=== PATIENT | female | born 1990 | race Caucasian/White ===

== ENCOUNTER 2017-05-19 20:41 | Inpatient (IN) | payer OTHER ==
[~2017-05-19] VITALS: Ht 167.6 cm; Wt 68.0 kg
[~2017-05-19 20:41] MED LIST: ACYC400 PO; ALBU4ER PO; ALBU90I INH; AMOCLA875 PO; AMOX250 PO; AMOX500 PO; AMOX50SU PO; ARIP10 PO; AZIT250 PO; BC PILLS; BENZ10TG MC; BIRTH CONTROL; BISMUTH SUBSALICYLATE; CIME400 PO; CODGUAEL PO; CYCL10 PO; DEXGUASY PO; DIPATR PO; DIPH50 PO; FAMO20 PO; HYDACE5 PO; HYDPAM25; IBUP600 PO; LOPE2C PO; MEDR10 PO; MIRT15; MONT10T PO; MULTCH PO; MULVITMINE; MULVITMINE PO; NITR100CA PO; ONDA4 PO; ONDA8ODT MM; OXYACE5T PO; OXYC10ER PO; OXYC5 PO; PENVK500 PO; PHENA100 PO; PHENA200 PO; PRED20 PO; PROC10 PO; PROC25S PR; PROC5 PO; PROCODE120 PO; PRODEXEL PO; PROM25 PO; PROM25S PR; PSETRI PO; Percocet 5-3251 EACH PO; QUET100 PO; QUET300 PO; RANI150 PO; RXDIPATR PO; RXONDA4ODT MM; RXPROM25 PO; SERT25 PO; SUCR1 PO; SULTRIDS PO; TRAM50 PO; Ultram50 MG PO; VENL25; Zofran Odt4 MG SL; Zofran4 MG PO; [UNRECOGNIZED DRUG - OTHER]
[2017-05-19 21:09] LABS: BASOPHILS ABSOLUTE AUTO 0.04 K/mm3 (0.00-0.23); BASOPHILS PERCENT AUTO 0 % (0-2); EOSINOPHILS ABSOLUTE AUTO 0.28 K/mm3 (0.00-0.68); EOSINOPHILS PERCENT AUTO 2 % (0-6); Hematocrit 36.9 % (33.0-51.0); Hemoglobin 12.5 g/dL (11.5-16.0); IMMATURE GRAN ABSOLUTE AUTO 0.04 K/mm3 (0.00-0.10); IMMATURE GRAN PERCENT AUTO 0 % (0-1); LYMPHOCYTES ABSOLUTE AUTO 3.34 K/mm3 (0.84-5.20); LYMPHOCYTES PERCENT AUTO 26 % (21-46); MONOCYTES ABSOLUTE AUTO 0.93 K/mm3 (0.16-1.47); MONOCYTES PERCENT AUTO 7 % (4-13); Mean Corpuscular HGB 30.1 pg (26.0-34.0); Mean Corpuscular HGB Conc 33.9 g/dL (31.5-36.5); Mean Corpuscular Volume 89 fL (80-100); Mean Platelet Volume 10.4 fL (9.1-12.4); NEUTROPHILS ABSOLUTE AUTO 8.21 K/mm3 (1.96-9.15); NEUTROPHILS PERCENT AUTO 64 % (41-73); Platelet Count 316 K/mm3 (150-400); RDW Coefficient Variation 13.9 % (11.7-14.2); RDW Standard Deviation 45.5 fL (35.1-46.3); Red Blood Cell Count 4.15 M/mm3 (3.80-5.20); White Blood Cell Count 12.84 K/mm3 (4.00-11.30)
[2017-05-19] MEDS ORDERED: PRENATAL TABLE1 EAC2 PO (21:34)
--- NOTE | 2017-05-20 15:22 | NUR ---
AMBULATING IN ROOM AND NOW OUTSIDE TO GO SMOKE. NO COMPLAINTS
--- NOTE | 2017-05-20 16:21 | NUR ---
pt up ambulating in the room. She and S.O. request oxycodone for her for break through pain to help her sleep. Update to Dr. Mccain and pain medicaiton changed.
--- NOTE | 2017-05-21 03:47 | NUR ---
PT C/O 9/10 PAIN BEFORE AND AFTER 2 PERCOCET PILLS. PT STATES SHE IS HAVING CONTRACTION LIKE PAIN/DULL PAIN IN BACK/SIMEON AREA. PT IS ALLERGIC TO IBUPROFEN. PT HAS TYLENOL AND TYLENOL #3 ORDERED. PT STATED THEY DID NOT HELP. PT EDUCATED ON OTHER PAIN MANAGEMENT OPTIONS (ICE DIAPER/HOT PACK). PT EDUCATED ON HOW OPIATES ARE NOT THE BEST FOR TREATING ACHEY POST- TYPE PAIN. PT DENIED USING ANY OTHER PAIN MANANGEMENT OPTIONS AND SAID SHE WOULD JUST "SLEEP IT OFF".
--- NOTE | 2017-05-21 06:57 | NUR ---
THROUGH OUT NIGHT PT EDUCATED ABOUT PROPER FEEDING TIME/AMOUNTS. PT STATES THAT BABE ISNT ABLE TO TAKE THAT MUCH. ANTI-SPIT UP FORMULA OFFERED, PT DECLINED. PT EDUCATED WHEN NEWBORNS ARE THIS SMALL IT IS IMPORTANT TO KEEP A GOOD FEEDING SCHEDULE AND TO FEED AT LEAST 10-15CC A FEEDING. PT EDUCATED TO STRIP DOWN BABE AND SWADDLE LESS TO KEEP NB AWAKE AND STIMULATED. PT APPEARS TO NOT BE EAGER ABOUT EDUCATION.
[2017-05-22 05:33] LABS: Hematocrit 32.8 % (33.0-51.0); Hemoglobin 10.9 g/dL (11.5-16.0); Mean Corpuscular HGB 30.1 pg (26.0-34.0); Mean Corpuscular HGB Conc 33.2 g/dL (31.5-36.5); Mean Corpuscular Volume 91 fL (80-100); Mean Platelet Volume 9.8 fL (9.1-12.4); Platelet Count 288 K/mm3 (150-400); RDW Coefficient Variation 13.9 % (11.7-14.2); RDW Standard Deviation 45.9 fL (35.1-46.3); Red Blood Cell Count 3.62 M/mm3 (3.80-5.20)
--- NOTE | 2017-05-22 10:30 | NUR ---
Pt resting in bed, ready to d/c home when able. VSS. Pt reports 8/10 pain, percocet given. Reports light lochia, denies other needs or complaints.
--- NOTE | 2017-05-22 11:00 | NUR ---
Printed d/c instructions reviewed w/pt. Denies questions at this time. ID bands matched w/nb.
--- NOTE | 2017-05-22 12:55 | NUR ---
No acute changes this shift. Pt d/c'd home ambulatory to care of [facility].
== END 2017-05-22 12:55 | disposition home or self-care (01) | DRG 775 ==
LOC: BC 20:41
PROVIDERS: ADMIT Obstetrics & Gynecology
PROC: 10E0XZZ Delivery of Products of Conception, External Approach (ICD-10-PCS; principal; 2017-05-20)
PROC: 10907ZC Drainage of Amniotic Fluid, Therapeutic from Products of Conception, Via Natural or Artificial Opening (ICD-10-PCS; 2017-05-20)
PROC: 3E0P7VZ Introduction of Hormone into Female Reproductive, Via Natural or Artificial Opening (ICD-10-PCS; 2017-05-20)
DX: O41.03X0 Oligohydramnios, third trimester, not applicable or unspecified (principal); O36.5930 Maternal care for other known or suspected poor fetal growth, third trimester, not applicable or unspecified; O99.824 Streptococcus B carrier state complicating childbirth; Z37.0 Single live birth; Z3A.39 39 weeks gestation of pregnancy; Z88.0 Allergy status to penicillin; Z88.8 Allergy status to other drugs, medicaments and biological substances; Z91.018 Allergy to other foods
CPT/HCPCS: 36415; 59200; 85025; 85027; J2210; J2405; J2590; J3010; J3370; J7120

== ENCOUNTER 2017-12-06 12:18 | Emergency (ER) | payer OTHER ==
[~2017-12-06] VITALS: Ht 172.7 cm; Wt 62.6 kg
[~2017-12-06 12:18] MED LIST changes: +PRENATAL TABLE1 EAC2 PO
[2017-12-06 13:03] LABS: BASOPHILS ABSOLUTE AUTO 0.05 K/mm3 (0.00-0.23); BASOPHILS PERCENT AUTO 1 % (0-2); EOSINOPHILS PERCENT AUTO 0 % (0-6); Hematocrit 43.6 % (33.0-51.0); Hemoglobin 14.4 g/dL (11.5-16.0); IMMATURE GRAN ABSOLUTE AUTO 0.03 K/mm3 (0.00-0.10); IMMATURE GRAN PERCENT AUTO 0 % (0-1); LYMPHOCYTES ABSOLUTE AUTO 2.54 K/mm3 (0.84-5.20); LYMPHOCYTES PERCENT AUTO 24 % (21-46); MONOCYTES ABSOLUTE AUTO 0.71 K/mm3 (0.16-1.47); MONOCYTES PERCENT AUTO 7 % (4-13); Mean Corpuscular HGB 30.4 pg (26.0-34.0); Mean Corpuscular Volume 92 fL (80-100); Mean Platelet Volume 10.2 fL (9.1-12.4); NEUTROPHILS ABSOLUTE AUTO 7.19 K/mm3 (1.96-9.15); NEUTROPHILS PERCENT AUTO 68 % (41-73); Platelet Count 311 K/mm3 (150-400); RDW Coefficient Variation 13.1 % (11.7-14.2); RDW Standard Deviation 44.7 fL (35.1-46.3); Red Blood Cell Count 4.74 M/mm3 (3.80-5.20); White Blood Cell Count 10.52 K/mm3 (4.00-11.30)
[2017-12-06 13:19] LABS: Alanine Aminotransfer (ALT/SGP 18 U/L (12-78); Albumin, Blood 3.9 g/dL (3.4-5.0); Albumin/Globulin Ratio 1.1 (0.8-1.8); Alk Phos 88 U/L (50-136); Anion Gap 10 mmol/L (6-16); Aspartate Aminotrans (AST/SGOT 13 U/L (12-37); Beta HCG, Quantitative, Serum 7 mIU/mL (0-3); Bilirubin, Total 0.8 mg/dL (0.1-1.0); Blood Urea Nitrogen 8 mg/dL (8-24); Bun/Creatinine Ratio 12.2 (12.0-20.0); CO2, Blood 24 mmol/L (21-32); Chloride, Blood 109 mmol/L (98-108); Creatinine, Blood 0.66 mg/dL (0.40-1.00); Globulin, Blood 3.5 g/dL (2.2-4.0); Glomerular Filtration Rate >60 (60-); Glucose, Blood 106 mg/dL (70-99); Potassium, Blood 3.6 mmol/L (3.5-5.5); Sodium, Blood 143 mmol/L (136-145); Total Protein, Blood 7.4 g/dL (6.4-8.2)
== END 2017-12-06 13:53 | disposition home or self-care (01) ==
LOC: ER 12:18
PROVIDERS: Emergency Medicine
DX: O20.9 Hemorrhage in early pregnancy, unspecified (principal); O99.331 Smoking (tobacco) complicating pregnancy, first trimester; F17.200 Nicotine dependence, unspecified, uncomplicated; Z88.0 Allergy status to penicillin; Z88.8 Allergy status to other drugs, medicaments and biological substances; Z88.6 Allergy status to analgesic agent; Z91.018 Allergy to other foods; Z79.899 Other long term (current) drug therapy
CPT/HCPCS: 36415; 80053; 81025; 84702; 85025; 86900; 86901; 99283

== ENCOUNTER 2018-01-24 22:54 | Emergency (ER) | payer OTHER ==
[~2018-01-24] VITALS: Ht 172.7 cm; Wt 59.0 kg
[2018-01-24] MEDS ORDERED: ACET120S (23:11)
[2018-01-25] MEDS ORDERED: CEPH500 PO (00:23)
== END 2018-01-25 00:33 | disposition home or self-care (01) ==
LOC: ER 22:54
DX: K04.7 Periapical abscess without sinus (principal); J44.9 Chronic obstructive pulmonary disease, unspecified; Z88.0 Allergy status to penicillin; Z88.6 Allergy status to analgesic agent; Z88.8 Allergy status to other drugs, medicaments and biological substances; Z91.018 Allergy to other foods
CPT/HCPCS: 64400; 99282-25

== ENCOUNTER 2018-02-17 15:20 | Emergency (ER) | payer OTHER ==
[~2018-02-17] VITALS: Ht 172.7 cm; Wt 61.2 kg
[~2018-02-17 15:20] MED LIST changes: +ACET120S; +CEPH500 PO
[2018-02-17] MEDS ORDERED: FOLATE PO (15:33)
[2018-02-17 16:16] LABS: BASOPHILS ABSOLUTE AUTO 0.05 K/mm3 (0.00-0.23); BASOPHILS PERCENT AUTO 0 % (0-2); EOSINOPHILS PERCENT AUTO 0 % (0-6); Hemoglobin 14.2 g/dL (11.5-16.0); IMMATURE GRAN ABSOLUTE AUTO 0.04 K/mm3 (0.00-0.10); IMMATURE GRAN PERCENT AUTO 0 % (0-1); LYMPHOCYTES ABSOLUTE AUTO 1.54 K/mm3 (0.84-5.20); LYMPHOCYTES PERCENT AUTO 14 % (21-46); MONOCYTES ABSOLUTE AUTO 1.01 K/mm3 (0.16-1.47); MONOCYTES PERCENT AUTO 9 % (4-13); Mean Corpuscular HGB 30.8 pg (26.0-34.0); Mean Corpuscular HGB Conc 33.8 g/dL (31.5-36.5); Mean Corpuscular Volume 91 fL (80-100); Mean Platelet Volume 9.4 fL (9.1-12.4); NEUTROPHILS ABSOLUTE AUTO 8.74 K/mm3 (1.96-9.15); NEUTROPHILS PERCENT AUTO 77 % (41-73); Platelet Count 339 K/mm3 (150-400); RDW Coefficient Variation 13.5 % (11.7-14.2); RDW Standard Deviation 45.8 fL (35.1-46.3); Red Blood Cell Count 4.61 M/mm3 (3.80-5.20); White Blood Cell Count 11.38 K/mm3 (4.00-11.30)
[2018-02-17 16:48] LABS: Alanine Aminotransfer (ALT/SGP 20 U/L (12-78); Albumin, Blood 3.7 g/dL (3.4-5.0); Alk Phos 90 U/L (50-136); Anion Gap 8 mmol/L (6-16); Aspartate Aminotrans (AST/SGOT 16 U/L (12-37); Bilirubin, Total 0.8 mg/dL (0.1-1.0); Blood Urea Nitrogen 9 mg/dL (8-24); Bun/Creatinine Ratio 13.8 (12.0-20.0); CO2, Blood 24 mmol/L (21-32); Calcium, Blood 8.8 mg/dL (8.5-10.1); Chloride, Blood 107 mmol/L (98-108); Creatinine, Blood 0.65 mg/dL (0.40-1.00); Globulin, Blood 3.8 g/dL (2.2-4.0); Glomerular Filtration Rate >60 (60-); Glucose, Blood 126 mg/dL (70-99); Potassium, Blood 3.9 mmol/L (3.5-5.5); Sodium, Blood 139 mmol/L (136-145); Total Protein, Blood 7.5 g/dL (6.4-8.2)
[2018-02-17 16:50] LABS: Source, Urine Clean Catch
[2018-02-17 16:54] LABS: Appearance, Urine Clear (Clear); Bilirubin, Urine Neg (Neg); Blood, Urine 3+ (Neg); Color, Urine Yellow (P-Yellow); Glucose Qualitative, Urine Neg (Neg); Ketones, Urine Neg (Neg); Leukocyte Esterase, Urine 1+ (Neg); Nitrite, Urine Neg (Neg); Protein, Urine 1+ (Neg); Specific Gravity, Urine 1.025 (1.003-1.022); Urobilinogen, Urine NORM (Normal)
[2018-02-17 17:00] LABS: Beta HCG, Quantitative, Serum 1372 mIU/mL (0-3)
[2018-02-17 17:04] LABS: Bacteria Few /hpf; Red Blood Cells, Urine 0-2 /hpf (0-2); Squamous Epithelial Cells Few /hpf (Few); White Blood Cells, Urine 0-2 /hpf (0-5)
[2018-02-17 17:05] LABS: Mucus Light (0-Heavy)
== END 2018-02-17 17:50 | disposition home or self-care (01) ==
LOC: ER 15:20
PROVIDERS: Emergency Medicine
DX: O20.0 Threatened abortion (principal); O99.331 Smoking (tobacco) complicating pregnancy, first trimester; F17.210 Nicotine dependence, cigarettes, uncomplicated; O99.511 Diseases of the respiratory system complicating pregnancy, first trimester; J44.9 Chronic obstructive pulmonary disease, unspecified; Z88.0 Allergy status to penicillin; Z88.8 Allergy status to other drugs, medicaments and biological substances; Z91.018 Allergy to other foods; Z3A.01 Less than 8 weeks gestation of pregnancy
CPT/HCPCS: 76801; 76817; 80053; 81001; 84702; 85025; 99284-25

== ENCOUNTER 2019-01-03 12:07 | Emergency (ER) | payer OTHER ==
[~2019-01-03] VITALS: Ht 172.7 cm; Wt 65.8 kg
[~2019-01-03 12:07] MED LIST changes: +FOLATE PO
[2019-01-03] MEDS ORDERED: TRAM50 PO (13:31)
[2019-01-03] MEDS ORDERED: Cleocin HCl300 MG PO (13:31)
== END 2019-01-03 13:45 | disposition home or self-care (01) ==
LOC: ER 12:07
DX: K03.81 Cracked tooth (principal); K02.9 Dental caries, unspecified; Z88.0 Allergy status to penicillin; Z88.8 Allergy status to other drugs, medicaments and biological substances; Z91.018 Allergy to other foods; J44.9 Chronic obstructive pulmonary disease, unspecified; F17.210 Nicotine dependence, cigarettes, uncomplicated
CPT/HCPCS: 99282

== ENCOUNTER → 2019-05-26 | Outpatient (CLI) | payer OTHER ==
[~2019-05-26] MED LIST changes: +Cleocin HCl300 MG PO
== END | disposition home or self-care (01) ==
LOC: LAB 11:03 → LAB SHORT 11:03
DX: N91.2 Amenorrhea, unspecified (principal)
CPT/HCPCS: 84702

== ENCOUNTER → 2021-05-31 | Outpatient (CLI) | payer OTHER ==
[2021-05-31 11:40] LABS: Progesterone 13.4 ng/mL
== END | disposition home or self-care (01) ==
LOC: LAB 09:01 → LAB SHORT 09:01
PROVIDERS: Obstetrics & Gynecology
DX: Z34.01 Encounter for supervision of normal first pregnancy, first trimester (principal)
CPT/HCPCS: 36415; 84144; 84702

== ENCOUNTER → 2021-07-09 | Outpatient (CLI) | payer OTHER ==
[2021-07-09 16:40] LABS: Source, Urine Clean Catch
[2021-07-09 19:14] LABS: White Blood Cells, Urine 0-2 /hpf (0-5)
[2021-07-09 19:15] LABS: Bacteria Rare /hpf; Red Blood Cells, Urine 0-2 /hpf (0-2); Squamous Epithelial Cells Few /hpf (Few)
[2021-07-09 19:16] LABS: U Amphetamine Screen Not Detected; U Barbituate Screen Not Detected; U Benzodiazapine Screen Not Detected; U Buprenorphine Screen Not Detected; U Cannabinoids Screen Not Detected; U Cocaine Screen Not Detected; U Methadone Screen Not Detected; U Methamphetamine Screen Not Detected; U Opiates Screen Not Detected; U Oxycodone Screen Not Detected; U Phencyclidine Screen Not Detected; U Propoxyphene Screen Not Detected
== END ==
LOC: LAB SHORT 16:37
PROVIDERS: Obstetrics & Gynecology
DX: Z34.81 Encounter for supervision of other normal pregnancy, first trimester (principal)
CPT/HCPCS: 81015

== ENCOUNTER → 2021-08-09 | Outpatient (CLI) | payer OTHER ==
[2021-08-11 04:09] LABS: CHLAMYDIA TRACHOMATIS, NAA Negative (Negative); HPV 16 Negative (Negative); HPV 18 Negative (Negative); HPV OTHER HR TYPES Negative (Negative)
== END | disposition home or self-care (01) ==
LOC: LAB 12:00 → LAB SHORT 12:00
PROVIDERS: Obstetrics & Gynecology
DX: Z01.419 Encounter for gynecological examination (general) (routine) without abnormal findings (principal); Z11.3 Encounter for screening for infections with a predominantly sexual mode of transmission
CPT/HCPCS: 87491; 87591; 87624; G0123

== ENCOUNTER → 2022-01-25 | Outpatient (CLI) | payer OTHER | END | disposition home or self-care (01) | LOC: LAB SHORT 09:00 → LAB 09:00 | DX: O09.93 Supervision of high risk pregnancy, unspecified, third trimester (principal) | CPT/HCPCS: 87081; 87150 ==

== ENCOUNTER 2022-01-28 23:14 | Observation (INO) | payer OTHER | END 2022-01-29 08:00 | disposition home or self-care (01) | LOC: BC 23:14 → OBS 01-29 02:38 → BC 01-29 02:39 | PROVIDERS: ADMIT Advanced Practice Midwife | DX: O47.1 False labor at or after 37 completed weeks of gestation (principal); Z87.891 Personal history of nicotine dependence; Z88.0 Allergy status to penicillin; Z88.8 Allergy status to other drugs, medicaments and biological substances; Z88.6 Allergy status to analgesic agent; Z91.018 Allergy to other foods; Z3A.37 37 weeks gestation of pregnancy ==

== ENCOUNTER 2022-02-08 05:19 | Inpatient (IN) | payer OTHER ==
[~2022-02-08] VITALS: Ht 170.2 cm; Wt 89.5 kg
[2022-02-08] MEDS ORDERED: ONDA4ODT (06:08)
[2022-02-08] MEDS ORDERED: FAMO20 PO (06:08)
[2022-02-08] MEDS ORDERED: Vitamin B Comple1 EA PO (06:09)
[2022-02-08] MEDS ORDERED: UNISOM SLEEPMIN25 MG PO (06:09)
[2022-02-08 06:34] LABS: BASOPHILS ABSOLUTE AUTO 0.06 K/mm3 (0.00-0.23); BASOPHILS PERCENT AUTO 1 % (0-2); EOSINOPHILS PERCENT AUTO 0 % (0-6); Hematocrit 37.1 % (33.0-51.0); Hemoglobin 12.2 g/dL (11.5-16.0); IMMATURE GRAN ABSOLUTE AUTO 0.05 K/mm3 (0.00-0.10); IMMATURE GRAN PERCENT AUTO 1 % (0-1); LYMPHOCYTES PERCENT AUTO 28 % (21-46); MONOCYTES ABSOLUTE AUTO 0.96 K/mm3 (0.16-1.47); MONOCYTES PERCENT AUTO 10 % (4-13); Mean Corpuscular HGB 28.7 pg (26.0-34.0); Mean Corpuscular HGB Conc 32.9 g/dL (31.5-36.5); Mean Corpuscular Volume 87 fL (80-100); Mean Platelet Volume 10.6 fL (9.1-12.4); NEUTROPHILS ABSOLUTE AUTO 6.03 K/mm3 (1.96-9.15); NEUTROPHILS PERCENT AUTO 61 % (41-73); Platelet Count 304 K/mm3 (150-400); RDW Coefficient Variation 14.5 % (11.7-14.2); RDW Standard Deviation 45.8 fL (35.1-46.3); Red Blood Cell Count 4.25 M/mm3 (3.80-5.20)
--- NOTE | 2022-02-09 12:15 | NUR ---
DISCHARGE INSTRUCTIONS, WRITTEN AND VERBAL, GIVEN TO PARENTS. ANSWERED ALL QUESTIONS AND CONCERNS. IV DISCONTINUED. FOLLOW UP APPOINTMENT SCHEDULED. ALL PERSONAL BELONGINGS RETURNED. NO WRITTEN PRESCRIPTIONS GIVEN TO PT. PT IS DISCHARGED HOME.
== END 2022-02-09 12:46 | disposition home or self-care (01) | DRG 807 ==
LOC: OBS 05:19 → BC 05:27
PROVIDERS: ADMIT Obstetrics & Gynecology
PROC: 10E0XZZ Delivery of Products of Conception, External Approach (ICD-10-PCS; principal; 2022-02-08)
PROC: 3E0R3BZ Introduction of Anesthetic Agent into Spinal Canal, Percutaneous Approach (ICD-10-PCS; 2022-02-08)
PROC: 00HU33Z Insertion of Infusion Device into Spinal Canal, Percutaneous Approach (ICD-10-PCS; 2022-02-08)
DX: O99.62 Diseases of the digestive system complicating childbirth (principal); Z37.0 Single live birth; K21.9 Gastro-esophageal reflux disease without esophagitis; O99.02 Anemia complicating childbirth; O69.1XX0 Labor and delivery complicated by cord around neck, with compression, not applicable or unspecified; O76 Abnormality in fetal heart rate and rhythm complicating labor and delivery; Z98.890 Other specified postprocedural states; Z3A.39 39 weeks gestation of pregnancy; Z87.891 Personal history of nicotine dependence; Z88.0 Allergy status to penicillin; Z88.8 Allergy status to other drugs, medicaments and biological substances; Z91.018 Allergy to other foods; Z79.899 Other long term (current) drug therapy; O09.293 Supervision of pregnancy with other poor reproductive or obstetric history, third trimester
CPT/HCPCS: 36415; 51702; 85025; 86850; 86900; 86901; A9270; J2001; J2210; J2590; J3010; J7120

== ENCOUNTER 2023-06-14 15:05 | Emergency (ER) | payer OTHER ==
[~2023-06-14] VITALS: Ht 170.2 cm; Wt 72.6 kg
[~2023-06-14 15:05] MED LIST changes: +ONDA4ODT; +UNISOM SLEEPMIN25 MG PO; +Vitamin B Comple1 EA PO
[2023-06-14 15:34] VITALS: BP 132/87
[2023-06-14] MEDS ORDERED: CLIN150 PO (15:41)
[2023-06-14] MEDS ORDERED: HYDR1TAB94 PO (15:41)
== END 2023-06-14 15:43 | disposition home or self-care (01) ==
LOC: ER 15:05
DX: K04.7 Periapical abscess without sinus (principal); J44.9 Chronic obstructive pulmonary disease, unspecified; F17.210 Nicotine dependence, cigarettes, uncomplicated; Z88.0 Allergy status to penicillin; Z88.1 Allergy status to other antibiotic agents; Z88.6 Allergy status to analgesic agent; Z88.8 Allergy status to other drugs, medicaments and biological substances; Z91.018 Allergy to other foods
CPT/HCPCS: 99282